=== PATIENT | male | born 2000 | race Hispanic/Latino ===

== ENCOUNTER 2020-08-25 14:27 | Emergency (ER) | payer SELFPAY ==
[~2020-08-25] VITALS: Ht 180.3 cm; Wt 108.9 kg
== END 2020-08-25 15:00 | disposition left against medical advice (07) ==
LOC: ER 14:48
DX: Z04.1 Encounter for examination and observation following transport accident (principal)

== ENCOUNTER 2022-12-07 01:07 | Emergency (ER) | payer SELFPAY ==
[~2022-12-07] VITALS: Ht 180.3 cm; Wt 99.8 kg
[2022-12-07] MEDS ORDERED: SODIUM CHLORIDE 0.9% 1000ML 1,000 ML ONE ×2 (01:31→01:46)
[2022-12-07] MEDS ORDERED: ONDANSETRON HCL INJ 2MG/ML 2ML 2 MG/ML VIAL ONE (01:31)
[2022-12-07] MEDS ORDERED: SODIUM CHLORIDE 0.9% 1000ML 1,000 ML IV STA ×2 (01:40)
[2022-12-07] MEDS ORDERED: FAMOTIDINE 20 MG/2 ML VIAL IV ONE ×2 (01:40→01:45)
[2022-12-07] MEDS ORDERED: ONDANSETRON HCL INJ 2MG/ML 2ML 2 MG/ML VIAL IV ONE (01:45)
[2022-12-07] MEDS ORDERED: FAMOTIDINE20 MG PO (01:48)
[2022-12-07] MEDS ORDERED: MAALOX MAXIMUM355 ML PO (01:48)
[2022-12-07] MEDS ORDERED: ONDANSETRON ODT4 MG PO (01:48)
== END 2022-12-07 02:45 | disposition home or self-care (01) ==
LOC: FSED 01:19
DX: R11.2 Nausea with vomiting, unspecified (principal); K29.20 Alcoholic gastritis without bleeding; F17.210 Nicotine dependence, cigarettes, uncomplicated
CPT/HCPCS: 80048; 80076; 85025; 99283; J2405; J7030